=== PATIENT | female | born 1985 | race Caucasian/White ===

== ENCOUNTER 2024-11-26 04:12 | Emergency (ER) | payer OTHER ==
[~2024-11-26] VITALS: Ht 157.5 cm; Wt 61.0 kg
[2024-11-26 04:15] VITALS: BP 152/107; PULSE 98; RESP 16; TEMP 97; O2SAT 97
== END 2024-11-26 04:38 | disposition home or self-care (01) ==
LOC: EMS 04:14
DX: R45.851 Suicidal ideations (principal); Z02.89 Encounter for other administrative examinations
CPT/HCPCS: 99283; 99284